=== PATIENT | female | born 1975 | race American Indian/Alaskan Native ===

== ENCOUNTER 2017-05-08 19:15 | Emergency (ER) | payer SELFPAY ==
[2017-05-08 20:28] LABS: Basophils % (Auto) 0.5 % (0.0-1.8); Eosinophils % (Auto) 1.2 % (0.0-4.3); Hemoglobin 9.1 gm/dl (10.1-14.3); White Blood Count 10.8 K/mm3 (4.5-11.0)
[2017-05-08 20:36] LABS: Hematocrit 29.1 % (30.3-42.9); Mean Corpuscular Hemoglobin 20 pg (28-32); Mean Corpuscular Volume 65 fl (79-97); Red Blood Count 4.46 M/mm3 (3.65-5.03)
[2017-05-08 20:37] LABS: Mean Corpuscular HGB Conc 31 % (30-34); Platelet Count 338 K/mm3 (140-440)
[2017-05-08 20:39] LABS: INR 1.03 (0.87-1.13); Partial Thromboplastin Time 31.7 Sec. (24.2-36.6)
[2017-05-08 20:47] LABS: Anion Gap 19 mmol/L; BUN/Creatinine Ratio 16.25; Blood Urea Nitrogen 13 mg/dL (7-17); Calcium 9.2 mg/dL (8.4-10.2); Carbon Dioxide 25 mmol/L (22-30); Chloride 100.7 mmol/L (98-107); Glucose 117 mg/dL (65-100); Potassium 4.4 mmol/L (3.6-5.0); Sodium 140 mmol/L (137-145)
--- NOTE | 2017-05-09 02:59 | Emergency Department Report ---
ED Dizziness HPI - General Chief Complaint: High BP Stated Complaint: HIGH BP/DIZZINESS Time Seen by Provider: 05/09/17 02:45 Source: patient Mode of arrival: Ambulatory Limitations: No Limitations - History of Present Illness Initial Comments: Patient is 41 years old female coming with dizziness and headache have blood pressure for the last week. Denied any loss of consciousness no focal weakness or numbness or tingling sensation. No nausea no vomiting. Patient never been diagnosed as having blood pressure so she does not have any blood pressure medication on board. No fever no neck pain. MD Complaint: dizziness -: Gradual, week(s) Timing: gradual onset History of Same: No History of Trauma: No Severity: moderate Associated Symptoms: denies other symptoms - Related Data Previous Rx's Medication Instructions Recorded Last Taken Type amLODIPine [Norvasc] 5 mg PO DAILY #30 tab 05/09/17 Unknown Rx Allergies Allergy/AdvReac Type Severity Reaction Status Date / Time No Known Allergies Allergy Verified 05/08/17 20:01 ED Review of Systems ROS: Stated complaint: HIGH BP/DIZZINESS Other details as noted in HPI Comment: All other systems reviewed and negative Constitutional: denies: chills, fever Eyes: denies: eye pain Respiratory: denies: cough, shortness of breath, SOB with exertion Cardiovascular: denies: chest pain, palpitations Gastrointestinal: denies: abdominal pain, nausea, vomiting Neurological: headache. denies: weakness, numbness, paresthesias ED Past Medical Hx - Past Medical History Previous Medical History?: No - Surgical History Past Surgical History?: No - Social History Smoking Status: Never Smoker Substance Use Type: None - Medications Home Medications: Home Medications Medication Instructions Recorded Confirmed Last Taken Type amLODIPine [Norvasc] 5 mg PO DAILY #30 tab 05/09/17 Unknown Rx ED Physical Exam - General Limitations: No Limitations General appearance: alert, in no apparent distress - Head Head exam: Present: normocephalic - Eye Eye exam: Present: normal appearance Pupils: Present: normal accommodation - ENT ENT exam: Present: normal exam - Neck Neck exam: Present: normal inspection, full ROM. Absent: tenderness, meningismus - Respiratory Respiratory exam: Present: normal lung sounds bilaterally. Absent: wheezes, rales, rhonchi - Cardiovascular Cardiovascular Exam: Present: regular rate, normal rhythm, normal heart sounds - GI/Abdominal GI/Abdominal exam: Present: soft. Absent: distended, tenderness, guarding, rebound, rigid - Extremities Exam Extremities exam: Present: normal inspection - Back Exam Back exam: Present: normal inspection. Absent: CVA tenderness (R), CVA tenderness (L) - Neurological Exam Neurological exam: Present: alert, oriented X3, CN II-XII intact, normal gait, reflexes normal. Absent: motor sensory deficit - Skin Skin exam: Present: warm, normal color ED Course Vital Signs 05/08/17 05/09/17 05/09/17 20:02 02:21 03:00 Temperature 98.8 F Pulse Rate 108 H 85 79 Respiratory 18 17 20 Rate Blood Pressure 128/77 Blood Pressure 160/98 154/88 [Right] O2 Sat by Pulse 100 100 99 Oximetry 05/09/17 05:02 Temperature Pulse Rate 88 Respiratory 15 Rate Blood Pressure Blood Pressure 126/80 [Right] O2 Sat by Pulse 99 Oximetry - Reevaluation(s) Reevaluation #1: 05/09/17 05:05 Patient stated that she is doing much better pressure is 126/80. Headache is gone no dizziness. Will start patient on Norvasc 5 mg and given referral to follow up primary care physician. ED Medical Decision Making - Lab Data Result diagrams: 05/08/17 20:15 05/08/17 20:15 Critical care attestation.: If time is entered above; I have spent that time in minutes in the direct care of this critically ill patient, excluding procedure time. ED Disposition Clinical Impression: Dizziness, Hypertension Disposition: DC-01 TO HOME OR SELFCARE Is pt being admited?: No Condition: Stable Instructions: Hypertension (ED) Referrals: PRIMARY MD JUS [Primary Care Provider] - 3-5 Days KITTY SOLIMAN MD [Staff Physician] - 3-5 Days
--- NOTE | 2017-05-09 04:03 | Cat Scan Report ---
FINAL REPORT EXAM: CT HEAD/BRAIN WO CON HISTORY: headache COMPARISON: None available. TECHNIQUE: Axial images obtained skull base through vertex. FINDINGS: No acute intracranial hemorrhage, midline shift or pathologic extra axial fluid collection. Ventricles and cisterns are normal in size and configuration for the patient's age. Cuadra-white differentiation preserved. Calvarium grossly intact. Visualized orbits are grossly unremarkable. Visualized para-nasal sinuses and mastoid air cells are clear. IMPRESSION: No grossly acute intracranial abnormality.
[2017-05-09 05:02] VITALS: BP 126/80
== END 2017-05-09 05:20 | disposition home or self-care (01) ==
LOC: ED 19:15
DX: I10 Essential (primary) hypertension (principal)
CPT/HCPCS: 36415; 70450; 80048; 84484; 84703; 85025; 85610; 85730; 93005; 93010; 99285